=== PATIENT | male | born 1965 | race Caucasian/White ===

== ENCOUNTER 2016-12-05 15:06 | Emergency (ER) | payer MEDICAID ==
[2016-12-05 15:07] VITALS: BMI 32.4
[2016-12-05 15:11] VITALS: TEMP 98.9
[2016-12-05] MEDS ORDERED: Albuterol/Ipratropium Neb 3 ML NEB NEB ONE ×2 (15:18→16:24)
[2016-12-05] MEDS ORDERED: METHYLPREDNISOLONE 125 MG/2 ML VIAL IV ONE (15:18)
[2016-12-05] MEDS ORDERED: TUSSIONEX 5 ML ORAL SYRINGE PO ONE (15:19)
[2016-12-05] MEDS ORDERED: NS 1,000 ML IV ONE (15:19)
[2016-12-05] MEDS ORDERED: FENTANYL 100 MCG/2 ML VIAL IV ONE ×2 (15:19→16:28)
--- NOTE | 2016-12-05 15:23 | EDPRACDOC ---
- General Information Chief Complaint: Dyspnea/Resp distress Stated Complaint: SHORT OF BREATH Time Seen by Provider: 12/05/16 15:10 Information Source: Patient Mode Of Arrival: Car Home Medications: Home Medications Albuterol [Proventil] 2 puff IH Q4-6H PRN 10/16/12 Nebulizer [Erapid Nebulizer] 1 item MC .UNKNOWN 10/19/14 Omeprazole [Prilosec] 20 mg PO DAILY 10/19/14 Tiotropium [Spiriva Handihaler] 1 puff INH QAM 10/19/14 Prednisone [Deltasone, Orasone] 30 mg PO DAILY 07/04/16 Albuterol Sulfate [Proventil, Ventolin] 2.5 mg NEB Q4H PRN 12/05/16 Budesonide/Formoterol Fumarate [Symbicort 160-4.5 Mcg Inhaler] 2 puff INH BID Buspirone HCl [Buspar] 10 mg PO BID 12/05/16 Guaifenesin-Dextromethorphan [Robitussin Dm] 10 ml PO Q12H PRN 12/05/16 Hydrocodone/Chlorphen Polis [Tussionex] 5 ml PO BID PRN #60 udc 12/05/16 Levofloxacin [Levaquin] 750 mg PO DAILY #10 tablet 12/05/16 Montelukast Sodium [Singulair] 10 mg PO DAILY 12/05/16 Prednisone [Deltasone, Orasone] 20 mg PO DAILY #20 tab 12/05/16 Allergies/Adverse Reactions: Allergies Allergy/AdvReac Type Severity Reaction Status Date / Time tramadol Allergy Severe Itching Verified 12/05/16 15:11 - History of Present Illness Onset: 5 ddays HPI: Pt reports worsening cough for 5 days, now productive of brownish sputum, paroxysmal, unable to sleep. More SOB due to known COPD. Pt uses inhaler and nebulizer and has increased his own oral prednisone that he takes chronically for past few days without improvement. He reports was going to see PMD on Tuesday, but not sure MD was going to be able to see him, wasn't getting better. Reports pain in both sides of ribs, upper back due to coughing. Pain worse with cough. No fevers. Had flu shot in August. No N/V/D. Current Symptoms: Reports: Cough. Denies: Nausea, Vomiting Cough: Reports: Productive, Brown, Green Rhinorrhea: Reports: None Associated Signs & Symptoms:: Denies: Fever, Vomiting, Diarrhea ED Past Medical History - History Reviewed Yes Nurses notes reviewed and agree except as marked - Patient Medical History Cardiac History: Reports: Hypertension Respiratory History: Reports: Asthma, COPD, Emphysema GI/ History: Reports: Gastroesophageal Reflux Psychological History: Reports: Depression, Anxiety. Denies: Substance Use Disorder Surgical History: Reports: Other (L5-S1 laminectomy in 2003) - Family Medical History Reports: Cardiac Disorders (Both parents with mature onset coronary artery disease.) - Social Medical History Smoking Status: Heavy tobacco smoker (5 or more cigarettes/day or daily pipe/ cigar) Social History: Denies: Substance Use Disorder EDM Review of Systems - Review of Systems ROS Negative Except as Marked: Yes All systems reviewed and were negative except as marked Constitutional: negative: Fever, Weakness Throat: Pain. negative: Hoarseness Nose: No Symptoms Reported Respiratory: Cough, Shortness of Breath, Wheezing, Sputum, Bronchitis, Dyspnea Cardiovascular: Chest Pain. negative: Edema, Syncope Gastrointestinal: negative: Diarrhea, Pain, Vomiting Musculoskeletal: Back, Chestwall, Ribs Integumentary: negative: Rash - Physical Exam Constitutional: Alert, Restless, Well nourished, Well appearing. negative: Confused, Decreased Consciousness, Uncooperative Oriented to: Time, Person, Place Last recorded Vital Signs: Last Vital Signs Temp 98.9 F 12/05/16 15:09 Pulse 124 H 12/05/16 15:09 Resp 26 H 12/05/16 15:09 BP 163/91 12/05/16 15:09 Pulse Ox 94 12/05/16 15:09 Oxygen Pulse Oxygen Saturation 94 O2 Device Room Air Oxygen Flow Rate Fraction of Inspired Oxygen ( FIO2) - HEENT Head: Normal ( normocephalic) Eye Exam: Normal (PERRL, EOMI, Sclera white) Oropharynx: Normal (Pharynx:Moist without exudate,Gums-no swelling) Nose: No Symptoms Reported (septum midline) Neck: Normal (FROM, trachea at midline) - Respiratory/Cardiovascular Respiratory: Diminished, Tachypnea, Wheezes, Other (paroxysmal coughing, frequent) Cardiovascular: Tachycardia. negative: Systolic murmur - GI Tenderness: Non tender. negative: Guarding, Rebound - Neurologic Memory Impaired: Normal Motor Function: Normal (Normal tone, Pulses 2+ No cyanosis or edema, FROM) Cranial Nerve: Normal (CN II-X11 intact sensation, strength 5/5) Cerebellar: Normal Thought: Coherent Perception: Normal - Differential Diagnosis Bronchitis, Influenza A B (Less likely influenza, no fever. Pt is standing, pacinng room. Voices frustration because of chest pain from coughing so frequently. Highest suspicion for acute on chronic bronchitis, probably viral. Will give nebs, anti-tussive, solu medrol, IVF's and monitor for symptom improvement. Labs and CXR pending to assess for possible pneumonia. ), Pneumonia, URI, Viral - Results 12/05/16 15:35 12/05/16 15:35 - Additional Information after 2 nebs, steroids, pt is feelin gimproved. O2 sats vary from 92-95% on RA. CXR suggests interstitial pneumonia, bronchitis. Pt is offered and recommended admission, he declines. He promises to return if worse. He understands risks of pneumonia and SOB, risk of , injury, morbidity. PT promises to try to f/u with PMD this week. Will give Rx for abx, steroids, antitussive. Decision Time to Discharge: 18:01 - Departure Disposition: Home Condition: Stable Final Diagnosis: Pneumonia, COPD with acute lower respiratory infection Instructions: COPD (Chronic Obstructive Pulmonary Disease) (ED), Bacterial Pneumonia (ED) Education/Counseling Given To: Patient, Family Member Education/Counseling Given Regarding: Diagnosis, Treatment, Prognosis, Follow Up Referrals: None,No Provider [Primary Care Provider] - One Week Prescriptions: Hydrocodone/Chlorphen Polis [Tussionex] 5 ml PO BID PRN #60 udc PRN Reason: Cough Levofloxacin [Levaquin] 750 mg PO DAILY #10 tablet Prednisone [Deltasone, Orasone] 20 mg PO DAILY #20 tab
[2016-12-05 15:39] LABS: VENOUS BEb 2.4 (+/- 2); VENOUS TCO2 27.6 MMOL/L (23-27)
[2016-12-05 15:49] LABS: MPV 7.6 fL (7.4-10.4)
--- NOTE | 2016-12-05 15:50 | DIRPT ---
CLINICAL DATA: Shortness of breath and cough. EXAM: CHEST - 2 VIEW COMPARISON: 07/04/2016 FINDINGS: Superimposed on emphysematous lung disease is diffuse increase in bronchial and interstitial prominence which may reflect bronchitis/interstitial pneumonia. No evidence of focal airspace consolidation, edema or pleural effusion. The heart size and mediastinal contours are normal. The bony thorax is unremarkable. IMPRESSION: Emphysematous lung disease with diffuse bronchitis/interstitial pneumonia. Electronically Signed By: Sarath Cheung M.D. On: 12/05/2016 15:47
[2016-12-05 16:05] LABS: BLOOD UREA NITROGEN 13 MG/DL (9-20); CALCIUM 9.4 MG/DL (8.4-10.2); CALCULATED OSMOLALITY 271 MOs/Kg (270-290); CHLORIDE 104 mEq/L (98-107); GLUCOSE 134 MG/DL (70-99); SODIUM LEVEL 140 mEq/L (137-146); TOTAL PROTEIN 7.2 G/DL (6.3-8.2)
[2016-12-05 16:11] LABS: SEG NEUTROPHIL 92 % (45-76)
[2016-12-05] MEDS ORDERED: CEFTRIAXONE 1 GM in D5W 100 ML IV ONE (16:24)
[2016-12-05] MEDS ORDERED: AZITHROMYCIN 250 MG TAB PO ONE (16:24)
[2016-12-05 18:05] VITALS: BP 172/85; PULSE 107
== END 2016-12-05 18:11 | disposition home or self-care (01) ==
LOC: ED 15:06
DX: J18.9 Pneumonia, unspecified organism (principal); J44.0 Chronic obstructive pulmonary disease with (acute) lower respiratory infection
CPT/HCPCS: 36415; 71020; 80053; 82803; 85007; 85027; 94640; 96361; 96365; 96375; 96376; 99283; J0696; J2930; J3010; J3490; J7060; J7620